=== PATIENT | female | born 1980 | race Caucasian/White ===

== ENCOUNTER 2018-02-06 08:05 | Emergency (ER) | payer OTHER ==
[~2018-02-06] VITALS: Ht 157.5 cm; Wt 68.0 kg
[2018-02-06] MEDS ORDERED: PEPCID20 MG PO (12:15)
[2018-02-06] MEDS ORDERED: LEVSIN/SL0.125 MG PO (12:15)
== END 2018-02-06 12:23 | disposition home or self-care (01) ==
LOC: ER 08:05
DX: K29.00 Acute gastritis without bleeding (principal)

== ENCOUNTER 2020-03-26 10:07 | Emergency (ER) | payer OTHER ==
[~2020-03-26] VITALS: Ht 157.5 cm; Wt 64.9 kg
[~2020-03-26 10:07] MED LIST: LEVSIN/SL0.125 MG PO; PEPCID20 MG PO
[2020-03-26] MEDS ORDERED: FLONASE16 GM (10:29)
[2020-03-26] MEDS ORDERED: PRILOSEC OTC20 MG (10:30)
[2020-03-26] MEDS ORDERED: LEVSIN/SL0.125 MG SL (16:12)
== END 2020-03-26 16:24 | disposition home or self-care (01) ==
LOC: ER 10:07
DX: K29.70 Gastritis, unspecified, without bleeding (principal); K80.20 Calculus of gallbladder without cholecystitis without obstruction; Z03.818 Encounter for observation for suspected exposure to other biological agents ruled out

== ENCOUNTER 2024-03-13 10:44 | Emergency (ER) | payer OTHER ==
[~2024-03-13] VITALS: Ht 157.5 cm; Wt 63.5 kg
[~2024-03-13 10:44] MED LIST changes: +FLONASE16 GM; +LEVSIN/SL0.125 MG SL; +PRILOSEC OTC20 MG
[2024-03-13] MEDS ORDERED: FERRETTS325 MG (11:24)
[2024-03-13 12:52] LABS: HEMATOCRIT 31.7 % (36.0-45.00); HEMOGLOBIN 11.3 g/dL (12.0-15.00); MEAN CELL VOLUME 81.4 fL (80.00-100.00); MEAN CORPUSCULAR HEMOGLOBIN 28.9 pg (27.00-32.0); MEAN CORPUSCULAR HGB CONC 35.5 g/dl (32.0-36.0); PLATELET COUNT 396 K/uL (150-450); RED CELL DISTRIBUTION WIDTH 14.7 % (11.5-14.5)
[2024-03-13 13:53] LABS: ANION GAP 9 (10.0-20.0); BLOOD UREA NITROGEN 12 mg/dL (7-18); BUN CREA RATIO 18 (7.0-25.0); CALCIUM 9.3 mg/dL (8.5-10.1); CARBON DIOXIDE 26 mEq/L (21-32); CHLORIDE 110 mmol/L (98-107); CREATININE SERUM 0.65 mg/dL (0.55-1.02); GFR 98.57; GLUCOSE FASTING 127 mg/dL (65-100); OSMOLALITY SERUM 283 MOSM/KG (275-295); POTASSIUM 4.13 mEq/L (3.5-5.1); SODIUM 141 mmol/L (136-145)
[2024-03-13 13:58] LABS: HCG QUANTITATIVE < 1 mUI/mL (1-3)
== END 2024-03-13 15:03 | disposition home or self-care (01) ==
LOC: ER 10:47
PROVIDERS: General Practice
DX: N93.8 Other specified abnormal uterine and vaginal bleeding (principal); D25.9 Leiomyoma of uterus, unspecified